=== PATIENT | male | born 1980 | race Caucasian/White ===

== ENCOUNTER 2020-09-03 08:48 | Inpatient (IN) | payer BC ==
[~2020-09-03] VITALS: Ht 182.9 cm; Wt 110.7 kg
[2020-10-15 09:05] LABS: HEMATOCRIT 51.1 % (42.0-52.0); HEMOGLOBIN 17.2 g/dl (13.5-18.0); MEAN CELL VOLUME 96 fl (80.0-100.0); MEAN CORPUSCULAR HEMOGLOBIN 33 pg (27.0-31.0); MEAN CORPUSCULAR HGB CONC 34 g/dl (33.0-37.0); MEAN PLATELET VOLUME 11.5 fl (7.4-10.4); PLATELET COUNT 196 K/mm3 (130-400); REDCELL DISTRIBUTION WIDTH-CV 13.5 % (11.5-14.5)
[2020-10-15 09:15] LABS: ALBUMIN 4.5 gm/dL (3.5-5.0); BILIRUBIN,TOTAL 0.7 mg/dL (0.0-1.0); CALCIUM 9.6 mg/dL (8.4-10.2); CREATININE, serum 1.16 (0.66-1.25); POTASSIUM 4.4 mmol/L (3.4-5.0); TOTAL PROTEIN 7.6 gm/dL (6.4-8.2)
[2020-10-16] VITALS (11 sets, daily range): BP systolic 123–139; BP diastolic 65–90; PULSE 68–94; TEMP 97.1–98.4
[2020-10-16] MEDS ORDERED: PRINIVIL20 MG PO (05:52)
[2020-10-16] MEDS ORDERED: BYSTOLIC5 MG PO (05:53)
[2020-10-16] MEDS ORDERED: PRIL40 PO (05:53)
[2020-10-16] MEDS ORDERED: ELIQUIS 5MG PO (05:54)
[2020-10-16] MEDS ORDERED: LEXAPRO 5MG5 MG PO (05:54)
--- NOTE | 2020-10-16 11:30 | NUR ---
Patient arrived back from surgery at 1115. He is drowsy but easy to wake up. Dressing to CONSUELO site has light bloody drainage, tegaderm intact. Laptsites to abdomen are C/D/I. Patient denies nausea. He stated he has some pain to his left lower quadrant. CONSUELO drain to bulbsuction, skant dark red drainage to CONSUELO. Richard secured to leg, red tinged urine in richard, clear and no clots. Oriented patient to room. Explained how the kitchen works for food. No other changes at this time. Call light within reach.
[2020-10-16] MEDS ORDERED: COLACE 100100 MG/CAP PO (14:04)
[2020-10-16] MEDS ORDERED: NORCO 325 MG-51 TAB PO (14:04)
--- NOTE | 2020-10-16 18:30 | NUR ---
Patient has been doing well. He is tolerating full liquid diet. Will advance for morning. Minimal complaints of pain, no complaints of nausea. Urine is starting to clear up. IVF's infusing at 75ml/hr as ordered. SCD's to BLE. No other changes at this time. Call light cynthiahttony reach. Patient is tolerating clear liquids diet.
--- NOTE | 2020-10-16 21:00 | NUR ---
PATIENT UP TO WALK THE HALLS WITH LINDA ANGEL. PATIENT HAD SOME PAIN WITH AMBULATING, BUT TOLERATED WELL. PATIENT HAS NO OTHER NEEDS AT THIS TIME. CALL LIGHT IS WITHIN REACH.
[2020-10-17 01:06] VITALS: BP 130/73; PULSE 112
[2020-10-17 03:23] VITALS: BP 132/79; PULSE 94; TEMP 98.5
--- NOTE | 2020-10-17 06:27 | NUR ---
PATIENT SLEPT WELL THROUGHOUT THE NIGHT. NO COMPLAINTS OF PAIN. CRYSTAL WAS DC THIS MORNING. CONSUELO DRAIN HAD 70 MLS OF OUTPUT.
[2020-10-17 06:39] LABS: BASO % 0.1 % (0.0-2.0); GRAN # 11.3 (1.4-6.5); GRAN % 82.2 % (42.2-75.2); HEMATOCRIT 46.7 % (42.0-52.0); HEMOGLOBIN 15.6 g/dl (13.5-18.0); MEAN CELL VOLUME 97 fl (80.0-100.0); MEAN CORPUSCULAR HEMOGLOBIN 32 pg (27.0-31.0); MEAN CORPUSCULAR HGB CONC 33 g/dl (33.0-37.0); MEAN PLATELET VOLUME 11.9 fl (7.4-10.4); MONO # 1.4 (0.1-0.6); MONO % 10.2 % (1.7-9.3); PLATELET COUNT 205 K/mm3 (130-400); RED BLOOD COUNT 4.83 M/mm3 (4.20-5.60); REDCELL DISTRIBUTION WIDTH-CV 13.5 % (11.5-14.5)
[2020-10-17 06:53] LABS: CREATININE, serum 1.34 (0.66-1.25); POTASSIUM 4.6 mmol/L (3.4-5.0)
[2020-10-17 07:28] VITALS: BP 151/98; PULSE 95; TEMP 98.3
--- NOTE | 2020-10-17 09:19 | NUR ---
Initial visit; Patient receptive to Final Canoe Inspector's visit and spoke of his special relationship with his Senior Center Director. Patient thanked Final Canoe Inspector for visit, prayer and offering God's blessings. Final Canoe Inspector will keep Kimo in her prayers.
--- NOTE | 2020-10-17 11:00 | NUR ---
Patient has been able to void this morning. Denies burning and pain with voiding. Patient has been up walking in the hallways. Denies pain and nausea. CONSUELO drain to bulb suction. Patient is passing flatus, no bowel movement yet. He is tolerating regular food without issues. No other changes at this time. Call light within reach.
[2020-10-17 12:06] VITALS: BP 130/87; PULSE 51; TEMP 98
--- NOTE | 2020-10-17 17:00 | NUR ---
CONSUELO drain discontinued at this time. Patient will be discharging home. Sticth removed from CONSUELO drain, drain removed slowly without resistance. Gauze placed to site with tegaderm to gauze. Patient tolerated well. Denies pain and nausea. No other changes at this time. Call light dylan hancock.
--- NOTE | 2020-10-17 18:30 | NUR ---
Patient is discharging home. Discharge instructions discussed with patient. NO quesitons verbalized. INT discontinued. Explained when follow up is in [place] with Dr Manriquez. He is aware he needs to hold his blood thinner. Copies of discharge instructions sent home with patient. All belongings packed up and sent with patient. Patient walked out with Sarah MCKEON.
== END 2020-10-17 18:30 | disposition home or self-care (01) | DRG 658 ==
LOC: SURG 09-26 07:30 → INPTSU 10-16 05:19 → SURG 10-16 07:30
PROVIDERS: ADMIT Urology
PROC: 0T774DZ Dilation of Left Ureter with Intraluminal Device, Percutaneous Endoscopic Approach (ICD-10-PCS; 2020-10-16)
PROC: 0TB14ZZ Excision of Left Kidney, Percutaneous Endoscopic Approach (ICD-10-PCS; principal; 2020-10-16 07:30)
PROC: 8E0W3CZ Robotic Assisted Procedure of Trunk Region, Percutaneous Approach (ICD-10-PCS; 2020-10-16 07:30)
PROC: BT1B1ZZ Fluoroscopy of Bladder and Urethra using Low Osmolar Contrast (ICD-10-PCS; 2020-10-16 07:30)
DX: C64.2 Malignant neoplasm of left kidney, except renal pelvis (principal)
CPT/HCPCS: A4314; C1769; C2617; J0690; J1100; J1170; J2250; J2405; J2704; J2795; J3010; J7120; Q9967